=== PATIENT | male | born 1940 | race Caucasian/White ===

== ENCOUNTER → 2017-12-30 | Outpatient (CLI) | payer OTHER ==
[~2017-12-30] VITALS: Ht 172.7 cm; Wt 78.9 kg
[2017-12-30] VITALS (8 sets, daily range): BP systolic 111–172; BP diastolic 54–78
[~2017-12-30] MED LIST: ALLOPURINOL 10100 M1 PO; APAP650 PO; ASPIR 8181 MG PO; CLONIDINE0.1 PO; COZAAR 25 MG TA25 M1 PO; CRESTOR20 MG PO; FISH OIL 1,001000 M2 PO; FLOMAX0.4 MG PO; FLONASE 0.05%50 MCG NASAL; HYDRALAZINE 2525 MG PO; IPRAT-ALBUT 0.5-3 ML NASAL; IRON325 PO; KLOR-CON 1010 MEQ PO; LASIX 20 MG TAB20 MG PO; LOPRESSOR50 PO; MAGOX 400400 MG PO; NORVASC2.5 MG PO; PEPCID20 MG PO; PLAVIX 75 MG TA75 M1 PO; SINGULAIR 10 MG10 M1 PO; XALATAN2.5 ML OPHTHALMIC
== END | disposition home or self-care (01) ==
LOC: SPEC 06:18
DX: I70.248 Atherosclerosis of native arteries of left leg with ulceration of other part of lower leg (principal); I70.1 Atherosclerosis of renal artery; I13.0 Hypertensive heart and chronic kidney disease with heart failure and stage 1 through stage 4 chronic kidney disease, or unspecified chronic kidney disease; I50.9 Heart failure, unspecified; N18.6 End stage renal disease; I25.10 Atherosclerotic heart disease of native coronary artery without angina pectoris; I42.9 Cardiomyopathy, unspecified; M10.9 Gout, unspecified; J44.9 Chronic obstructive pulmonary disease, unspecified; H40.9 Unspecified glaucoma; K21.9 Gastro-esophageal reflux disease without esophagitis; Z79.899 Other long term (current) drug therapy; Z87.19 Personal history of other diseases of the digestive system; Z86.73 Personal history of transient ischemic attack (TIA), and cerebral infarction without residual deficits; Z82.49 Family history of ischemic heart disease and other diseases of the circulatory system; Z98.890 Other specified postprocedural states; Z79.82 Long term (current) use of aspirin